=== PATIENT | female | born 1990 | race Caucasian/White ===

== ENCOUNTER 2018-05-11 16:53 | Emergency (ER) | payer SELFPAY ==
--- NOTE | 2018-05-11 16:47 | EDPHY ---
HPI/HX/ROS/PE/MDM - Data Points Imaging: Discussed imaging studies w/ charger tester Radiologist, I viewed and interpreted images myself Narrative: CHIEF COMPLAINT: Unresponsive, took too many THC edibles HPI: The patient is a 27 y/o female with a history of a heart valve repair arriving via EMS after becoming unresponsive following taking too many THC edibles today. Per EMS, the patient was celebrating when she smoked some marijuana and took 200 mg of marijuana edibles, this is 10 times the normal dose. She did not drink any alcohol. When EMS arrived on scene, the patient vomited once and had two pseudo seizures. She was responsive to painful stimuli , particularly when placing the nasal airway. While en route to the emergency department she had a heart rate of 116. REVIEW OF SYSTEMS: Unable to obtain due to patient's mental status. PMH: Heart valve repair as a child SOCIAL HISTORY: Visiting [place] from [place], family at bedside, employed PHYSICAL EXAM: General: Patient is somnolent, in no acute distress. ENT: Pupils are dilated but reactive bilaterally. ENT inspection normal. Neck: Normal inspection. Full range of motion. Respiratory: No respiratory distress. Breath sounds normal bilaterally. Cardiovascular: Sinus tachycardia. Strong peripheral pulses. Normal cap refill. Abdomen: The abdomen is nontender to palpation. There are no peritoneal signs. There are normal bowel sounds. Back: Normal to inspection. No tenderness to palpation. Skin: Normal color. No rash. Warm and dry. Extremities: Normal appearance. Full range of motion. Neuro: Responds to painful stimuli. Myoclonic jerking. (Hima Taylor) ED Course: 170: Reassessed patient, she is still somnolent and has random myoclonic jerks. Head CT, EKG, and labs ordered. 1731: EKG was ordered and interpreted by myself. Please see [employer] system for official reading. 175: I spoke with Dr. Malik, radiologist, who reports patient's head CT is normal. 180: Reassessed patient, she is still somnolent, but is now spontaneously opening her eyes. I have discussed the imaging and laboratory findings with her family. 181: Patient's myoclonic jerking is consistent with ingesting a high dose of cannabis. 1900: Patient care turned over to Dr. Banegas at shift change. (Hima Taylor) MDM: An EKG obtained and was read and documented in trace view. Please see trace view for full reading and report. Sinus tachycardia, improved from previous, prolonged QT interval, stable 7:45 p.m. the patient is arousable to voice. Her heart rate has normalized. Her boyfriend states that she seems to be doing better and is no longer having muscle tremors or shakes. We will continue to observe. 10:20 p.m. the patient continues to improve. She is awake but drowsy. She will answer questions. She is drinking water. She has not yet ambulatory. We will continue to observe. Care transferred to Dr. Jeramy Harden shift change. (Timo Banegas) - Data Points Imaging Results: Imaging Impressions Head CT 05/11/18 16:57 Impression: There is no acute intracranial abnormality identified on this unenhanced CT evaluation. Findings were discussed with Hima Taylor MD at 17:54, on 05/11/2018. If there is further clinical concern regarding the patient's symptoms, MR imaging is suggested, if not otherwise contraindicated. Laboratory Results: Laboratory Results 05/11/18 15:53 05/11/18 15:53 05/11/18 05/11/18 15:53 15:53 WBC 10.54 10^3/uL H 10^3/uL (3.80-9.50) RBC 3.97 10^6/uL L 10^6/uL (4.18-5.33) Hgb 11.0 g/dL L g/dL (12.6-16.3) Hct 32.4 % L % (38.0-47.0) MCV 81.6 fL fL (81.5-99.8) MCH 27.7 pg L pg (27.9-34.1) MCHC 34.0 g/dL g/dL (32.4-36.7) RDW 13.2 % % (11.5-15.2) Plt Count 311 10^3/uL 10^3/uL (150-400) MPV 10.0 fL fL (8.7-11.7) Neut % (Auto) 77.9 % H % (39.3-74.2) Lymph % (Auto) 12.2 % L % (15.0-45.0) [place] % (Auto) 7.4 % % (4.5-13.0) Eos % (Auto) 1.2 % % (0.6-7.6) Baso % (Auto) 0.6 % % (0.3-1.7) Nucleat RBC Rel Count 0.0 % % (0.0-0.2) Absolute Neuts (auto) 8.21 10^3/uL H 10^3/uL (1.70-6.50) Absolute Lymphs (auto) 1.29 10^3/uL 10^3/uL (1.00-3.00) Absolute Monos (auto) 0.78 10^3/uL 10^3/uL (0.30-0.80) Absolute Eos (auto) 0.13 10^3/uL 10^3/uL (0.03-0.40) Absolute Basos (auto) 0.06 10^3/uL 10^3/uL (0.02-0.10) Absolute Nucleated RBC 0.00 10^3/uL 10^3/uL (0-0.01) Immature Gran % 0.7 % % (0.0-1.1) Immature Gran # 0.07 10^3/uL 10^3/uL (0.00-0.10) Sodium 135 mEq/L mEq/L (135-145) Potassium 3.6 mEq/L mEq/L (3.3-5.0) Chloride 111 mEq/L H mEq/L (97-110) Carbon Dioxide 20 mEq/l L mEq/l (22-31) Anion Gap 4 mEq/L L mEq/L (8-16) BUN 13 mg/dL mg/dL (7-23) Creatinine 0.6 mg/dL mg/dL (0.6-1.0) Estimated GFR > 60 Glucose 98 mg/dL mg/dL (70-100) Calcium 7.8 mg/dL L mg/dL (8.5-10.4) Medications Given: Discontinued Medications Sodium Chloride (Ns) 1,000 mls @ 0 mls/hr IV EDNOW ONE; Wide Open PRN Reason: Protocol Stop: 05/11/18 16:58 Last Admin: 05/11/18 17:32 Dose: 1,000 mls Sodium Chloride (Ns) 1,000 mls @ 0 mls/hr IV EDNOW ONE; Wide Open PRN Reason: Protocol Stop: 05/11/18 19:03 Last Admin: 05/11/18 19:17 Dose: 1,000 mls General Time Seen by Provider: 05/11/18 16:53 Initial Vital Signs: Initial Vital Signs Temperature (C) 35.7 C L 05/11/18 17:10 Heart Rate 117 H 05/11/18 17:10 Respiratory Rate 18 05/11/18 17:10 Blood Pressure 122/67 H 05/11/18 17:10 O2 Sat (%) 98 05/11/18 17:10 O2 Delivery Mode Nasal Cannula O2 (L/minute) 2 Allergies/Adverse Reactions: No Known Allergies Allergy (Unverified 05/11/18 17:13) Home Medications: Medication Instructions Recorded NK [No Known Home Meds] 05/11/18 Departure - Departure Disposition: Home, Routine, Self-Care Clinical Impression: Marijuana use Cannabis overdose Qualifiers: Encounter type: initial encounter Injury intent: accidental or unintentional Qualified Code(s): T40.7X1A - Poisoning by cannabis (derivatives), accidental ( unintentional), initial encounter Condition: Fair Instructions: Cannabis Abuse (ED) Referrals: [facility],. [Clinic] - As per Instructions Report Scribed for: Hima Taylor Report Scribed by: Lisbeth Carpio Date of Report: 05/11/18 Time of Report: 16:46 Physician Review and Approval Statement: Portions of this note were transcribed by an ED scribe. I personally performed the history, physical exam, and medical decision making; and confirm the accuracy of the information in the transcribed note.
[2018-05-11] MEDS ORDERED: NS 1,000 ML IV ONE ×2 (16:57→19:02)
--- NOTE | 2018-05-11 17:35 | CPEKG ---
Heart Rate: 119 RR Interval: 504 P-R Interval: 148 QRSD Interval: 102 QT Interval: 344 QTC Interval: 485 P [place]: 53 QRS [place]: 68 T Wave [place]: 2 EKG Severity - ABNORMAL ECG - EKG Impression: SINUS TACHYCARDIA EKG Impression: LEFT ATRIAL ABNORMALITY EKG Impression: LEFT VENTRICULAR HYPERTROPHY EKG Impression: BORDERLINE PROLONGED QT INTERVAL Electronically Signed By: Hima Taylor 12-May-2018 17:00:59
[2018-05-11 17:44] LABS: PLATELET COUNT 311 10^3/uL (150-400)
--- NOTE | 2018-05-11 19:11 | CPEKG ---
Heart Rate: 108 RR Interval: 556 P-R Interval: 184 QRSD Interval: 96 QT Interval: 372 QTC Interval: 499 P [place]: 53 QRS [place]: 60 T Wave [place]: -24 EKG Severity - ABNORMAL ECG - EKG Impression: SINUS TACHYCARDIA EKG Impression: PROBABLE LEFT ATRIAL ABNORMALITY EKG Impression: LEFT VENTRICULAR HYPERTROPHY EKG Impression: BORDERLINE T ABNORMALITIES, INFERIOR LEADS EKG Impression: PROLONGED QT INTERVAL Electronically Signed By: Timo Banegas 11-May-2018 19:15:45
[2018-05-12 00:07] VITALS: BP 102/63
== END 2018-05-12 00:07 | disposition home or self-care (01) ==
DX: T40.7X1A Poisoning by cannabis (derivatives), accidental (unintentional), initial encounter (principal); E86.9 Volume depletion, unspecified